=== PATIENT | female | born 1945 | race Caucasian/White ===

== ENCOUNTER 2017-07-24 12:43 | Inpatient (IN) | payer MEDICARE, OTHER ==
--- NOTE | 2017-07-24 13:22 | CT ---
CT BRAIN; HISTORY: Fall with head injury. FINDINGS: Noncontrast-enhanced CT images of the brain were obtained. The brain is unremarkable. No evidence of intracranial masses, hemorrhages, strokes, or contusions s een. IMPRESSION: Normal CT brain. POS: [facility]
--- NOTE | 2017-07-24 13:24 | CT ---
CT CERVICAL SPINE NONCONTRAST: HISTORY: Fall. Neck injury. FINDINGS: Vertebral body heights are maintained. Disk space narrowing and minimal degenerative spondylolisthes is are present at the C4-5 and C6-7 levels. Disk space narrowing and sclerotic changes are most pron ounced at the C5-6 level. No acute fracture or dislocation. Cervicothoracic junction is intact. No acute fracture or dislocation. IMPRESSION: Cervical spondylosis. No acute osseous abnormalities are demonstrated. POS: [facility]
--- NOTE | 2017-07-24 13:35 | CT ---
CT LUMBAR SPINE NONCONTRAST: HISTORY: Fall. Back injury. FINDINGS: Burst fracture involving the superior half of L1 is present with loss of height by less than 20%. Th ere is retropulsion of the superior end plate by approximately 0.5 cm resulting in mild compromise of the thecal sac AP diameter. Mild degenerative changes are present throughout the remainder of the lumbar spine. Left renal cyst is partially visualized. Prominent calcification in the arterial structures. IMPRESSION: 1. L1 burst fracture with minimal retropulsion. 2. Lumbar spondylosis. 3. Atherosclerosis. Findings were called to Dr. Palma in the emergency department at 1324 hours. CODE CR POS: [facility]
--- NOTE | 2017-07-24 13:37 | RAD ---
LEFT WRIST 3 VIEWS: HISTORY: Fall. Left wrist injury. FINDINGS: Comminuted fracture with multiple intraarticular components of the distal radius is present. There i s impaction by 1.0 cm. Resultant dorsal tilt. Loss of inclination. Osseous structures are deminera lized. Scaphoid waist intact. IMPRESSION: 1. Comminuted intraarticular displaced and angulated distal left radial fracture. 2. Osteoporosis. POS: [facility]
--- NOTE | 2017-07-24 13:42 | RAD ---
RIGHT WRIST 3 VIEWS: HISTORY: Fall. Right wrist injury. FINDINGS: Mildly comminuted distal radial fracture is present with nondisplaced sagittally oriented component i nto the articular surface at the level of the scaphoid base. Minimal posterior displacement. Dorsal tilt. Loss of inclination. Osseous structures are demineralized. Osteoarthritis 1st carpometacarp al joint. IMPRESSION: 1. Impacted intraarticular posterior angulated fracture distal right radius. 2. Osteoporosis. POS: [facility]
--- NOTE | 2017-07-24 13:51 | RAD ---
CHEST 1 VIEW: HISTORY: Preop. FINDINGS: Cardiac silhouette and pulmonary vasculature are unremarkable. Mediastinum midline. Calcified granu lomata are consistent with healed granulomatous disease. No lobar consolidation or evidence of pneum othorax. Leftward convex curvature of thoracic spine. IMPRESSION: No active cardiopulmonary abnormalities are demonstrated. POS: [facility]
[2017-07-24 14:10] LABS: #Basophils 0.1 thou/uL (0.0-0.2); #Eosinphils 0.2 thou/uL (0.0-0.7); #Lymphocytes 2.1 thou/uL (1.20-3.40); #Monocytes 0.8 thou/uL (0.11-0.59); #Neutrophils 11.2 thou/uL (1.40-6.50); %Basophils 0.4 % (0.0-1.0); %Eosinophils 1.4 % (0.0-10.0); %Lymphocytes 14.5 % (21.0-51.0); %Monocytes 5.7 % (0.0-10.0); %Neutrophils 78.1 % (42.0-75.0); Hemoglobin 13.4 g/dL (12.0-16.0); Mean Corpuscular HGB CONC 35.1 g/dL (32.0-36.0); Mean Corpuscular Hemoglobin 31.7 pg (27.0-31.0); Mean Corpuscular Volume 90.2 fl (81.0-99.0); Platelet Count 216 thou/uL (130-400); RBC Distribution Width 11.6 % (11.5-14.5); Red Blood Cell (RBC) Count 4.23 mill/uL (4.20-5.40); White Blood Cell (WBC) Count 14.3 thou/uL (4.8-10.8)
[2017-07-24] MEDS ORDERED: Ondansetron ODT 8 MG TAB ONE (14:25)
[2017-07-24 14:31] LABS: ALT (SGPT) 15 U/L (8-55); AST (SGOT) 45 U/L (5-34); Albumin 4.1 g/dL (3.4-4.8); Alkaline Phosphatase 133 U/L (40-150); Anion Gap 17 mmol/L (10-20); BUN (Urea Nitrogen) 13 mg/dL (9.8-20.1); Bilirubin, Total 0.4 mg/dL (0.2-1.2); Calc. Creatinine Clearance 0 mL/min (70-130); Calcium 9.9 mg/dL (7.8-10.44); Carbon Dioxide 20 mmol/L (23-31); Chloride 104 mmol/L (98-107); Estimated GFR-MDRD 57; Globulin 3.1 g/dL (2.4-3.5); Glucose 138 mg/dL (83-110); Potassium 4.1 mmol/L (3.5-5.1); Protein, Total 7.2 g/dL (6.0-8.3); Sodium 137 mmol/L (136-145)
[2017-07-24] MEDS ORDERED: Ondansetron HCl/PF 4 MG/2 ML Vial IVP PRN ×2 (15:55→16:37)
[2017-07-24] MEDS ORDERED: Ondansetron ODT 4 MG TAB SL PRN (15:55)
[2017-07-24] MEDS ORDERED: Acetaminophen 325 MG TAB PO PRN (15:55)
[2017-07-24] MEDS ORDERED: Sodium Chloride 0.9% 1,000 ML IV SCH (15:55)
--- NOTE | 2017-07-24 16:27 | HP ---
DATE OF ADMISSION: 07/24/2017 REQUESTING PHYSICIAN: Stephanie Cameron M.D. ATTENDING PHYSICIAN: Dr. Austin. CONSULTATIONS: Orthopedics, Dr. Ennis and Neurosurgery, Dr. Mueller. HISTORY OF PRESENT ILLNESS: The patient is a 72-year-old woman who was walking up steps to an RV when she slipped and fell, landing on her back. Patient denied loss of consciousness. She wa s brought to the emergency department by ground EMS and underwent evaluation and examination was note d to have an L1 burst fracture and bilateral distal radius fractures at which time we were asked to e valuate the patient for admission and obtain orthopedic and neurosurgical consultation. CURRENT MEDICATIONS: The patient does not have her current medications with her. She knows that she takes an antidepressant thyroid medicine and then medicines for her ulcerative colitis. ALLERGIES: None. PAST MEDICAL HISTORY: Hypothyroidism, ulcerative colitis, depression. PAST SURGICAL HISTORY: Hysterectomy, cholecystectomy, and bladder sling. FAMILY MEDICAL HISTORY: Hypertension. SOCIAL HISTORY: Patient currently lives at home with her . She denies drug, tobacco or alcoh ol use. REVIEW OF SYSTEMS: Ten-point review of systems negative, unless otherwise stated. PHYSICAL EXAMINATION: VITAL SIGNS: Blood pressure 153/78, heart rate 84, respirations 16, oxygen saturation is 96% on room air, and temperature is 98.1. GENERAL: Patient is resting comfortably in ER bed. She is awake, alert, and oriented x3. Selam c jakob scale is 15. HEENT: Head is normocephalic, atraumatic. Eyes: Extraocular motion intact. PERRLA bilaterally. E ars are atraumatic without discharge. Nose atraumatic without discharge. Oropharynx is clear. NECK: Nontender. Trachea is midline. No JVD. CHEST: Clear to auscultation with good inspiratory and expiratory effort. HEART: Regular rate and rhythm. ABDOMEN: Soft, flat, nontender with active bowel sounds. Pelvis is stable. EXTREMITIES: Neurovascularly intact x4, bilateral upper extremities are splinted. The patient is ab le to move all of her digits and able to give a thumbs up sign. BACK: Tender to palpation in the lumbar region consistent with her fracture. LABORATORY DATA: White blood cell count 14.3, hemoglobin 13.4, hematocrit 38.2, platelets 216. Sodi um 137, potassium 4.1, chloride 104, CO2 of 20, BUN 13, creatinine 0.96, glucose 138. LFTs are unrem arkable. RADIOGRAPHIC FINDINGS: CT of the head without contrast shows normal CT of the brain. CT of the C-sp ine without contrast shows no acute osseous abnormalities. CT of the lumbar spine shows an L1 burst fracture with minimal retropulsion. AP chest shows no active cardiopulmonary abnormalities. Three v iews of the right wrist showed impacted intra-articular posteriorly angulated fracture of the distal right radius. Three views of the left radius show a comminuted intra-articular displaced and angulat ed distal left radial fracture. ASSESSMENT AND PLAN: 1. Status post fall. 2. L1 burst fracture to be treated in a TLSO brace per Dr. Mueller. The patient may require surgi willian intervention in delayed fashion. 3. Left distal radius fracture, currently splinted, plan will be to make the patient n.p.o. and go t o the OR tomorrow for ORIF versus pinning. 4. Right distal radius fracture, splinted, the patient will be made n.p.o. after midnight. Plans of going to the OR tomorrow. 5. Pain secondary to acute trauma. 6. History of ulcerative colitis. 7. History of hypothyroidism. Plan will be to admit the patient to the surgical floor. She was fitted with her TLSO brace here in the emergency department, her fractures are splinted. We will move her to the floor for pain control , pulmonary toilet, gastritis, mechanical deep venous thrombosis prophylaxis. The patient again will be made n.p.o. after midnight for her surgical procedures in the morning. The evaluation, examinati on, laboratory and radiographic findings will be discussed with Dr. Austin after this dictation.
[2017-07-24] MEDS ORDERED: Cyclobenzaprine 10 MG TAB PO PRN (16:37)
[2017-07-24] MEDS ORDERED: Dextrose 5% in Water 1,000 ML IV PRN (16:37)
[2017-07-24] MEDS ORDERED: Ondansetron ODT 4 MG TAB PO PRN (16:37)
[2017-07-24] MEDS ORDERED: Dextrose 50% Abboject 50 ML SYRINGE SLOW IVP PRN (16:37)
[2017-07-24] MEDS ORDERED: hydrALAZINE 20 MG/ML VIAL SLOW IVP PRN (16:37)
[2017-07-24] MEDS: Sodium Chloride 0.9% 1,000 ML IV SCH (16:47)
[2017-07-24] MEDS ORDERED: diphenhydrAMINE 25 MG CAP PO PRN (17:14)
[2017-07-24 17:40] VITALS: BMI 28.3
[2017-07-24] MEDS: Ketorolac Tromethamine 30 MG/ML VIAL IVP SCH ×2 (18:20→23:41)
[2017-07-24] MEDS: Famotidine 20 MG TAB PO SCH (22:19)
--- NOTE | 2017-07-24 22:26 | CON ---
DATE OF CONSULTATION: 07/25/2017 CHIEF COMPLAINT: Bilateral wrist pain. HISTORY OF PRESENT ILLNESS: Ms. Hartman is a 72-year-old female. She was traveling with her on her way to [facility]. The patient slipped down the stairs of her RV and landed hard on the [employer] lot. She sustained an L1 burst fracture. She also sustained injury to the bilateral wrists wit h distal radius and ulna fractures. She was seen in the emergency department. Orthopedics was consu lted as well as Neurosurgery. She has been admitted to the hospital. She is in a lumbar brace. The patient is currently comfortable. ALLERGIES: She has received pain medications. PAST MEDICAL HISTORY: Ulcerative colitis, depression, hypothyroidism. PAST SURGICAL HISTORY: Hysterectomy, cholecystectomy, and bladder sling. FAMILY MEDICAL HISTORY: Hypertension. SOCIAL HISTORY: The patient is with her . She denies alcohol, tobacco, or drug use. REVIEW OF SYSTEMS: Negative for 10-point review of systems except for pain in the wrist and back as per HPI. IMAGES: X-rays of the bilateral radius and ulna demonstrate comminuted and displaced distal radius f ractures. There is significant impaction, dorsal angulation, and shortening of the radius bilaterall y. The patient has evidence of osteoporosis on her images. PHYSICAL EXAMINATION: VITAL SIGNS: Temperature is 97.7, pulse is 66, respiratory rate 16, blood pressure 138/78. GENERAL: She is alert, lying supine in no apparent distress. RESPIRATORY: Breathing comfortably. ABDOMEN: Soft, nontender, nondistended. CARDIOVASCULAR: Pulse is palpable and regular. MUSCULOSKELETAL: The patient's bilateral upper extremities are splinted. She has 2 second capillary refill. Fingers are warm and well perfused. She has normal sensation in the fingertips in all five digits. Splints are clean, dry, and intact. IMPRESSION: Bilateral distal radius fractures with displacement and an L1 burst fracture after fall. PLAN: At this point, the patient will need operative intervention regarding her wrist. I will plan for open reduction and internal fixation of the bilateral distal radius. We will plan for this tomor row morning. I do have concerns about her left wrist, she has a severely comminuted and shortened di stal radius on the left with evidence of osteoporosis. If I cannot adequately reduce and fix the dis amy radius internally, I will proceed to external fixation for this wrist. I am confident I can oneil t the right wrist with open reduction and internal fixation. She is aware of risks, which do include infection, which is higher given her Humira as well as wound complications. She has risk of nonunio n, malunion, posttraumatic arthritis, and others. She wished to proceed. She should be n.p.o. at [facility]. She will have adequate pain control. She will have prophylactic antibiotics.
[2017-07-24] MEDS: Acetaminophen 1,000 MG in Premix Bag 1 BAG IVPB SCH (23:41)
[2017-07-25 00:14] LABS: Bilirubin Negative (Negative); Blood, Urine Negative (Negative); Clarity CLEAR (Clear); Glucose, Urine (Dipstick) Negative (Negative); Leukocyte Negative (Negative); Nitrite Negative (Negative); Protein, Urine (Dipstick) Negative (Neg-Trace); Specific Gravity, Urine 1.012 (1.002-1.036); Urobilinogen 0.2 mg/dL (0.2-1.0)
[2017-07-25 05:19] LABS: #Eosinphils 0.1 thou/uL (0.0-0.7); #Lymphocytes 2.9 thou/uL (1.20-3.40); #Monocytes 1.2 thou/uL (0.11-0.59); #Neutrophils 6.6 thou/uL (1.40-6.50); %Basophils 0.4 % (0.0-1.0); %Eosinophils 0.7 % (0.0-10.0); %Lymphocytes 26.9 % (21.0-51.0); %Monocytes 10.9 % (0.0-10.0); %Neutrophils 61.1 % (42.0-75.0); Hemoglobin 11.5 g/dL (12.0-16.0); Mean Corpuscular Hemoglobin 30.4 pg (27.0-31.0); Mean Corpuscular Volume 92.1 fl (81.0-99.0); Mean Platelet Volume 7.9 fL (7.4-10.4); Platelet Count 185 thou/uL (130-400); RBC Distribution Width 11.6 % (11.5-14.5); Red Blood Cell (RBC) Count 3.79 mill/uL (4.20-5.40); White Blood Cell (WBC) Count 10.9 thou/uL (4.8-10.8)
[2017-07-25 05:21] LABS: INR-International Normal Ratio 1.2; PTT 36.2 SEC (22.9-36.1); Prothrombin Time 14.9 SEC (12.0-14.7)
[2017-07-25 05:35] LABS: Anion Gap 13 mmol/L (10-20); BUN (Urea Nitrogen) 14 mg/dL (9.8-20.1); Calc. Creatinine Clearance 63 mL/min (70-130); Calcium 8.7 mg/dL (7.8-10.44); Carbon Dioxide 20 mmol/L (23-31); Chloride 108 mmol/L (98-107); Estimated GFR-MDRD 58; Glucose 93 mg/dL (83-110); Potassium 4.7 mmol/L (3.5-5.1); Sodium 136 mmol/L (136-145)
[2017-07-25] MEDS: Ketorolac Tromethamine 30 MG/ML VIAL IVP SCH ×3 (05:57→18:36)
[2017-07-25] MEDS: Acetaminophen 1,000 MG in Premix Bag 1 BAG IVPB SCH ×3 (05:58→12:40)
[2017-07-25] MEDS ORDERED: CEFAZOLIN/Water 2 GM/20 ML SYRINGE ONE (06:40)
[2017-07-25] MEDS ORDERED: Fentanyl 100 MCG/2 ML VIAL ONE ×3 (07:06→11:17)
[2017-07-25] MEDS ORDERED: CEFAZOLIN/Water 2 GM/20 ML SYRINGE SLOW IVP SCH ×2 (07:30→14:00)
--- NOTE | 2017-07-25 07:56 | CON ---
DATE OF CONSULTATION: 07/25/2017 Neurosurgery consultation. REASON FOR EVALUATION: L1 burst fracture. HISTORY OF PRESENT ILLNESS: Mrs. Hartman is a very pleasant 72-year-old woman from the [place] area w ronnie was on her way to [facility], she was walking up steps in her RV when she slipped and fell and la nded on her back. She denied any loss of consciousness. She was brought to our emergency department where she complained of back and forearm pain and found to have bilateral forearm fractures and an L 1 burst fracture. PAST MEDICAL HISTORY: Ulcerative colitis, depression, hypothyroidism. PAST SURGICAL HISTORY: Hysterectomy, cholecystectomy, bladder sling. MEDICATIONS: She takes some home medications that are immuno modulatory for ulcerative colitis. She is on antidepressant and thyroid replacement. ALLERGIES: No known drug allergies. FAMILY HISTORY: Hypertension. SOCIAL HISTORY: Mrs. Hartman is . She lives at home with her . She denies tobacco, a lcohol, and recreational drug use. She enjoys vacations with the family and was on her way to [place] [facility] a vacation when this slip and fall happened. REVIEW OF SYSTEMS: Review of systems otherwise negative. PHYSICAL EXAMINATION: GENERAL: I am seeing Mrs. Hartman in the preoperative area. She is set to undergo surgery for her f orearm fractures on both sides. VITAL SIGNS: Her recorded vital signs overnight do not show any fevers. Blood pressures have been i n the 130s to 140s. The rest of the vitals look stable to me. HEENT: Mrs. Hartman is wide awake. NEURO: She is alert. She is oriented x3. Her cranial nerves are working normally. Her receptive a nd expressive speech function is normal. There is no dysmetria. I do not find any weakness in the l egs. There is relatively good strength in iliopsoas, quadriceps, hamstrings, anterior tibia, EHL, an d gastrocnemius. Testing the proximal muscles exacerbates her spine fracture pain, but I do not find any gross weakness. There is no loss of sensation in the legs. There is no sensory level at L1. S he has good joint position sense all the way down to the toes FINDINGS AND TEST RESULTS: I reviewed CT examination lumbar spine showed an L1 burst fracture. Spin al alignment is quite good. There is a small fracture fragment in the canal, but there is ample room for the nerve roots. IMPRESSION: Slip and fall on with bilateral forearm fractures and an L1 burst fracture. Mrs. Hartman is wearing incorrect spinal orthosis. The clamshell TLSO was recommended to our emergen cy room physicians and what I see her placed in is a thoracic spinal orthosis without extension down to the iliac crest. This thoracic spinal orthosis is not the clamshell variety and gives her less st ability for the fracture than she needs. What she needs will be the plastic clamshell brace that was recommended and will need to call [facility] to come teach her how to p lace and remove it, to size her appropriately and get her fitted correctly before she can be released to return home. Mrs. Hartman does not want to return to [place] for followup of her spine fracture. She has been instructed to get in touch with a spine surgeon near her home for that follow up. I recommend c lose followup within a week and then serial imaging and followup over time as the fracture heals. Stephenson rgical intervention would be warranted or kyphoplasty considered (with a small risk of cement extrava sation due to burst variety fracture), should the pain be intolerable or there be progressive deformi ty.
[2017-07-25] MEDS ORDERED: Morphine Sulfate 2 MG/ML SYRINGE SLOW IVP PRN (10:10)
[2017-07-25] MEDS ORDERED: Ondansetron HCl/PF 4 MG/2 ML Vial IVP PRN (10:10)
[2017-07-25] MEDS ORDERED: Promethazine HCl 25 MG/ML VIAL SLOW IVP PRN (10:10)
[2017-07-25] MEDS ORDERED: Promethazine HCl 25 MG/ML VIAL IM PRN (10:10)
--- NOTE | 2017-07-25 10:40 | RAD ---
LEFT WRIST 2 VIEWS: HISTORY: A 72-year-old female status post ORIF left distal radius. COMPARISON: 07/24/17. FINDINGS: This is an AP and lateral-only view of the left wrist. Placement of volar metal plate and screws sta bilizing the comminuted distal radial fracture with improvement in position and alignment when compar ed to the pre-reduction study. IMPRESSION: Placement of metal plate and screws stabilizing a comminuted distal radial fracture with improvement in position and alignment. POS: [facility]
--- NOTE | 2017-07-25 10:47 | RAD ---
RIGHT WRIST 3 VIEWS: HISTORY: ORIF. COMPARISON: None. FINDINGS: Satisfactory appearance of the volar plate and screw fixation of the distal radius fracture. IMPRESSION: Satisfactory alignment post reduction. POS: [facility]
[2017-07-25] MEDS ORDERED: ePHEDrine/0.9% NaCl/PF SYRINGE 50 mg/10 ml ONE (12:26)
[2017-07-25] MEDS ORDERED: Ketorolac Tromethamine 30 MG/ML VIAL ONE (12:26)
[2017-07-25] MEDS ORDERED: Ondansetron HCl/PF 4 MG/2 ML Vial ONE (12:26)
[2017-07-25] MEDS ORDERED: Lidocaine 1% PF 5 ML VIAL ONE (12:26)
[2017-07-25] MEDS ORDERED: PHENYLEPHRINE-NS 100 MCG/ML 10 ML SYRINGE ONE (12:26)
[2017-07-25] MEDS ORDERED: PROPOFOL 200 MG/20 ML VIAL ONE (12:26)
[2017-07-25] MEDS: HYDROcodone/Acetaminophen 10/325 mg Tablet PO PRN ×2 (12:38→18:35)
--- NOTE | 2017-07-25 13:02 | PRG-2 ---
DATE OF SERVICE: 07/25/2017 SUBJECTIVE: The patient is a 72-year-old female who is status post fall from her RV noris g on her back. She was found to have an L1 burst fracture that would be treated with a TLSO brace. She also had bilateral distal radius fractures. She was seen by Orthopedic Surgery and they recommen ded repair of those which was occurring today on 07/25/2017. OBJECTIVE: VITAL SIGNS: Temperature 99.0, pulse 72, respiration 16, 93% on room air for oxygen saturation and b lood pressure is 132/80. GENERAL: [place] Coma Scale is 15. The patient is awake, alert, and oriented x3. HEENT: Head is normocephalic, atraumatic. EYES: PERRLA. NECK: Nontender. Trachea is midline. No JVD. LUNGS: Chest is clear to auscultation with good inspiratory and expiratory effort. CARDIOVASCULAR: Heart; regular rate and rhythm. ABDOMEN: Soft, nontender with active bowel sounds. LABORATORY DATA: White blood cell count 10.9, hemoglobin of 11.5, hematocrit 34.9, platelet count 18 5. Sodium 136, potassium 4.7, chloride 108, BUN 14, creatinine 0.94. ASSESSMENT: 1. Status post fall. 2. L1 burst fracture treated with TLSO brace per Neurosurgery. 3. Left-sided distal radius fracture being repaired today for open reduction and internal fixation v ersus pinning. 4. Right distal radius fractures to be repaired this morning. 5. Pain secondary to acute trauma. 6. History of ulcerative colitis. 7. History of hypothyroidism. PLAN: The patient is undergoing surgery currently for repair of her bilateral radius fractures. The patient was fitted for a TLSO brace and may require surgical intervention in a delayed fashion. We will continue to treat her for pain control, pulmonary toilet, gastritis and other supportive measure s. All questions were answered by the time of this dictation. This case was discussed with Dr. Campos, trauma attending.
[2017-07-25] MEDS: CEFAZOLIN/Water 2 GM/20 ML SYRINGE SLOW IVP SCH (16:19)
[2017-07-25] MEDS ORDERED: Diphenoxylate HCl/Atropine Tablet PO PRN (17:46)
[2017-07-25] MEDS ORDERED: HYDROcodone/Acetaminophen 10/325 mg Tablet PO PRN (18:00)
[2017-07-25] MEDS: Famotidine 20 MG TAB PO SCH ×2 (18:41→20:20)
[2017-07-25] MEDS: Sodium Chloride 0.9% 1,000 ML IV SCH (19:37)
[2017-07-26] MEDS: CEFAZOLIN/Water 2 GM/20 ML SYRINGE SLOW IVP SCH (00:20)
[2017-07-26] MEDS: Ketorolac Tromethamine 30 MG/ML VIAL IVP SCH ×2 (00:21→06:05)
[2017-07-26] MEDS: Sodium Chloride 0.9% 1,000 ML IV SCH (00:46)
[2017-07-26] MEDS ORDERED: Senokot 8.6 MG TAB PO PRN (07:23)
[2017-07-26] MEDS ORDERED: HYDROcodone/Acetaminophen 10/325 mg Tablet PO PRN (08:35)
[2017-07-26] MEDS ORDERED: traMADol HCl 50 MG TAB PO PRN (08:35)
[2017-07-26] MEDS: Famotidine 20 MG TAB PO SCH ×2 (09:18→21:02)
[2017-07-26] MEDS: Ferrous Sulfate 325 MG TAB PO SCH (09:19)
[2017-07-26] MEDS: Levothyroxine Sodium 75 MCG TAB PO SCH (09:20)
[2017-07-26] MEDS: FLUoxetine HCl 20 MG CAP PO SCH (09:20)
[2017-07-26] MEDS: Loratadine 10 MG TAB PO SCH (09:21)
[2017-07-26] MEDS: Loperamide HCl 2 MG CAP PO SCH (09:21)
[2017-07-26] MEDS: Polyethylene Glycol 3350 17 GM Packet PO SCH (09:21)
[2017-07-26] MEDS: traMADol HCl 50 MG TAB PO SCH ×3 (09:26→21:01)
[2017-07-26] MEDS: Acetaminophen 325 MG TAB PO SCH ×3 (09:28→21:02)
[2017-07-26] MEDS: Ibuprofen 600 MG TAB PO SCH ×2 (09:29→17:36)
--- NOTE | 2017-07-26 13:14 | PRG-2 ---
DATE OF SERVICE: 07/26/2017 SUBJECTIVE: The patient is a 72-year-old female, who is status post fall from RV landing on her back . She was found to have an L1 burst fracture that would be treated with a TLSO brace per Neurosurger y. The patient also had bilateral distal radius fracture. She is postoperative day #1. Repair of t he bilateral radius fractures. The patient is not complaining of any pain from her injuries; however , she is complaining of pain, especially from the orthotic back brace. She is wanting to return home or at least return to the [facility] for rehab here in the near future. OBJECTIVE: VITAL SIGNS: Temperature 98.1, pulse was 80, respirations are 15, oxygen saturation was 93%, and blo od pressure was 99/61. GENERAL: A [place] coma Scale is 15. The patient is awake, alert, and oriented x3. The patient brody ears in no acute distress. HEENT: Head is normocephalic, atraumatic. Eyes, PERRLA. NECK: Nontender. Trachea is midline. No JVD. LUNGS: Clear to auscultation with good inspiratory and expiratory effort. Incentive spirometry is u sed then switching to have an incentive spirometry up to 1750 currently. CARDIOVASCULAR: Regular rate and rhythm, no murmurs. ABDOMEN: Soft, nontender with active bowel sounds. NEURO: Neurovascularly, she is intact x4. EXTREMITIES: She does have bilateral dressings over her surgically repair radius bilaterally. LABORATORY DATA: None of note. ASSESSMENT: 1. Status post fall. 2. Status post L1 burst fracture treated with a TLSO brace per Neurosurgery with follow up in the [facility]. 3. Postop day #1 left and right-sided distal radius fracture repaired with open reduction internal f ixation. 4. Pain secondary to acute trauma. 5. History of ulcerative colitis. 6. History of hypothyroidism. PLAN: The patient underwent surgery yesterday successfully has no real complaints of pain. The breezy ent does need to have her brace readjusted by the orthotic company. As it is causing her quite a bit of discomfort. The patient would like to return to the [facility] for rehabilitation and it is rec ommended that she does undergo inpatient rehab placement. Her case management is on the case to help make that happen. We will continue to treat her pain control as well as her pulmonary toilet and ot her supportive measures. All their questions were answered at the time this dictation. Case was dis cussed with Dr. Austin, trauma attending and he is in agreement.
[2017-07-26] MEDS: Senokot 8.6 MG TAB PO SCH (21:03)
[2017-07-27] MEDS: traMADol HCl 50 MG TAB PO SCH ×3 (02:35→14:14)
[2017-07-27] MEDS: Acetaminophen 325 MG TAB PO SCH ×3 (02:36→14:14)
[2017-07-27] MEDS: Ibuprofen 600 MG TAB PO SCH ×3 (02:36→17:22)
[2017-07-27] MEDS ORDERED: Enoxaparin Sodium 40 MG/0.4 ML SYRINGE SC SCH (09:00)
[2017-07-27] MEDS: Loratadine 10 MG TAB PO SCH (09:09)
[2017-07-27] MEDS: FLUoxetine HCl 20 MG CAP PO SCH (09:09)
[2017-07-27] MEDS: Ferrous Sulfate 325 MG TAB PO SCH (09:09)
[2017-07-27] MEDS: Famotidine 20 MG TAB PO SCH (09:09)
[2017-07-27] MEDS: Loperamide HCl 2 MG CAP PO SCH (09:09)
[2017-07-27] MEDS: Levothyroxine Sodium 75 MCG TAB PO SCH (09:09)
[2017-07-27] MEDS: Polyethylene Glycol 3350 17 GM Packet PO SCH (09:10)
[2017-07-27] MEDS: Senokot 8.6 MG TAB PO SCH (09:10)
--- NOTE | 2017-07-27 13:49 | DIS-2 ---
DATE OF ADMISSION: 07/24/2017 DATE OF DISCHARGE: 07/27/2017 RESIDENT: Talha Parsons M.D. ADMITTING ATTENDING: Juan J Austin D.O. DISCHARGE ATTENDING: Juan J Austin D.O. CONSULTATIONS: Neurosurgery with Dr. Mueller; Orthopedics, Dr. Ennis; Case management, [facility]; occupational therapy evaluation and treatment; and physical therapy evaluation and treatment. PROCEDURES: On 07/24/2017, patient underwent a lumbar spine CT that showed L1 burst fracture with mi nimal retropulsion, lumbar spondylosis, atherosclerosis. On 07/24/2017, the patient underwent a brai n CT that showed normal CT of the brain. On 07/24/2017, patient underwent a cervical spine CT that s howed cervical spondylosis. No acute osseous abnormalities demonstrated. On 07/24/2017, patient und erwent a right wrist x-ray that showed impacted intra-articular, posterior angulated fracture distal right radius and osteoporosis. On 07/24/2017, the patient underwent a left wrist x-ray that showed a comminuted intra-articular, displaced, angulated distal left radial fracture and osteoporosis. On 0 07/24/2017, the patient underwent a chest x-ray that showed no active cardiopulmonary abnormalities ar e demonstrated. Patient underwent open reduction and internal fixation of the bilateral distal radiu s on 07/25/[address] Ennis. The patient underwent a left and right wrist x-ray on 07/25/2017 t hat showed placement of metal plate and screws stabilizing the comminuted distal radial fracture with improvement in position alignment bilaterally. PRIMARY DIAGNOSES: 1. Status post fall. 2. Status post L1 burst fracture, treated with thoracolumbosacral orthosis clamshell brace per Neuro surgery. 3. Postoperative left and right-sided distal radius fracture repaired with open reduction and planner internship al fixation. 4. Pain secondary to acute trauma. 5. History of ulcerative colitis. 6. History of hypothyroidism. DISCHARGE MEDICATIONS: 1. Lomotil 1 tab p.o. b.i.d. p.r.n. 2. Omeprazole 40 mg p.o. daily. 3. Loperamide 4 mg p.o. daily. 4. Zantac 150 mg p.o. daily. 5. Claritin 10 mg p.o. daily. 6. Levothyroxine 75 mcg p.o. daily. 7. Fluoxetine 20 mg p.o. daily. 8. Mucinex 600 mg p.o. b.i.d. p.r.n. 9. Balsalazide sodium 3 caps p.o. daily. 10. Simethicone 125 mg p.o. q.i.d. 11. Iron 27 mg p.o. daily. 12. Acetaminophen 650 mg p.o. q.6 hours. 13. Enoxaparin 40 mg subcu at 0900 hours. 14. Ibuprofen 600 mg p.o. q.8 hours. 15. Tramadol 50 mg p.o. q.6 hours. DISCONTINUED MEDICATIONS: None. HISTORY OF PRESENT ILLNESS AND HOSPITAL COURSE: The patient is a 72-year-old female, who w as walking up the steps through an RV when she slipped and fell landing on her back. The patient den ies loss of consciousness. She was brought to the emergency department via ground EMS and underwent evaluation and examination was noted to have a L1 burst fracture and bilateral distal radius fracture s, at which time asked to evaluate the patient for admission and obtain orthopedic and neurosurgical consultation. During this hospitalization, the patient had some notable lab values of white blood cell count of 14. 3 that trended down to 10.9 and an essentially unremarkable chemistry panel and a urinalysis that was positive for only trace ketones. The patient was afebrile during this hospitalization. She had nor motensive vital signs with saturation of oxygen on room air. Patient, otherwise, had a very little c omplaint as to pain of her radius or her back. Most of the pain that she had was with the new brace that was placed per Dr. Mueller with Neurosurgery. Dr. Mueller has said that she may need surgic al repair in the future of her L1 burst fracture; however, will be in for kyphoplasty if the pain inc reases or the deformity does not repair. The patient is in agreement with this and she has been johnathan red and accepted to go to a longterm facility up around the [facility] where she is from. Sh kayode successfully went under bilateral distal radius repair with Dr. Ennis with normal postop care w ithout any complications. Otherwise, the patient had no further complications during this hospitaliz ation and was discharged in appropriate condition. She will follow up with an orthopedic surgeon in the [facility] in 2 weeks as well as a Neurosurgery physician in 2-3 weeks in the [facility] as miguel clarke. DISCHARGE INSTRUCTIONS: 1. Location: She will be discharged to a longterm facility in the [facility]. 2. Diet: Will be as tolerated, no restrictions. 3. Activity: Will be with orthopedic limitations, especially of her back L1 burst fracture and of h er distal radius fractures. 4. Followup: Will be with an orthopedic surgeon in 2 weeks and a neurosurgeon in 2-3 weeks in the [facility] to further discuss management of her injuries.
[2017-07-27 16:00] VITALS: BP 161/88; TEMP 98.6
== END 2017-07-27 18:01 | DRG 511 ==
LOC: ERS 12:43 → SURG A 14:59
PROVIDERS: ADMIT Surgery; ATTEND Surgery
PROC: 0PSJ04Z Reposition Left Radius with Internal Fixation Device, Open Approach (ICD-10-PCS; principal; 2017-07-25)
PROC: 0PSH04Z Reposition Right Radius with Internal Fixation Device, Open Approach (ICD-10-PCS; 2017-07-25)
DX: S52.571A Other intraarticular fracture of lower end of right radius, initial encounter for closed fracture (principal); S32.011A Stable burst fracture of first lumbar vertebra, initial encounter for closed fracture; S52.572A Other intraarticular fracture of lower end of left radius, initial encounter for closed fracture; K51.90 Ulcerative colitis, unspecified, without complications; E03.9 Hypothyroidism, unspecified; F32.9 Major depressive disorder, single episode, unspecified; Z90.49 Acquired absence of other specified parts of digestive tract; Z90.710 Acquired absence of both cervix and uterus; K29.70 Gastritis, unspecified, without bleeding; M47.896 Other spondylosis, lumbar region; M47.892 Other spondylosis, cervical region; M81.0 Age-related osteoporosis without current pathological fracture; F41.9 Anxiety disorder, unspecified
CPT/HCPCS: 29125; 36415; 70450; 71045; 72125; 72131; 76001; 80048; 80053; 81003; 85025; 85610; 85730; 90471; 93005; 96374; 96376; C1713; G0390; G8978-GP-CL; G8979-GP-CJ; G8987-GO-CM; G8988-GO-CI; J0131; J1650; J1885; J2001; J2270; J2405; J2704; J3010; J8499; L0639